=== PATIENT | female | born 1970 | race Caucasian/White ===

== ENCOUNTER 2025-01-08 13:45 | Outpatient (RCR) | payer OTHER, SELFPAY ==
--- NOTE | 2024-09-20 17:52 | OT.OPPOC ---
Physical, Occupational & Speech Therapy At [facility] Nereyda Conway [id number] 1970 Visit Care Team Role Provider Type TREY Rodrigez Attending Provider Non-Staff Primary Care Provider Referring Provider Address: [facility], [address] [place] [address], [id number] Occupational Therapy Plan of Care OT Outpatient Adult Evaluation Start: 09/20/24 12:34 Freq: Status: Active Protocol: Document 09/20/24 14:30 (Rec: 09/20/24 12:53 [id number]) General Information - Adult Visit Information Visit Number 1 of 10 Plan of Care Dates 09/20/24-11/29/24 Insurance no pre-auth;no copay/deductible;max 12 OT visits, Information including 1 OT eval pcy Session Time Visit Start Date 09/20/24 Visit Start Time 14:30 Visit Stop Time 15:15 Setting Treatment Setting Outpatient Care Visit Type Note Type Initial Evaluation Referral Referring Physician TREY Rodrigez, MSN, CLINICAL DATA RESEARCH-BC Reason for Referral DeQuervain's tenosynovitis of wrist Identification Identification Yes Confirmed Identification EMR Confirmed By Medical Information Medical History History of bilateral trigger of thumbs, vestibular migraines, vertigo Social Information Social History I can't do anything with a supervisor shop at this point, 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, Patient Questionnaires Quick Dash- Upper Extremity Quick Dash UE Score 52.3 Quick Dash UE 40 to 59% Impaired (Score 40-59) Impairment Quick Dash- Work and Sports Modules Quick Dash W&S Score W: 75, S: 100 Quick Dash Work and 100% Impaired (Score 100) Sport Impairment Goals Objective Measurements Objective Juan test: (+) bilaterally Measurements Dredge Pumper: R - 10, 10, 10 - Average: 10lb L - 5, 8, 10 - Average: 7.7lb 3 Jaw Juan Pinch: R - 7, 9, 6 - Average: 7.3lb L - 5, 5, 7 - Average: 5.7lb Lateral Pinch: R - 7, 10, 10 - Average: 9lb L - 9, 10, 9 - Average: 9.3 Treatment Treatment Patient educated on conservative management strategies for suspected bilateral DeQuervain?s tenosynovitis. Home exercise program initiated, including gentle AROM for ulnar deviation, thumb opposition, and Juan stretch. Patient instructed on appropriate use of ice and heat modalities for pain modulation. Advised to continue use of bilateral thumb spica splints with emphasis on compliance during aggravating activities. Discussed benefits and rationale for compression wrapping, as patient reported previous benefit. Short Term Goals Short Term Goals Within 5 weeks: 1. Patient will demonstrate independence with ergonomic strategies and self-management tools including appropriate splint use, modalities, and task pacing/ modification to prevent flare-up. 2. Patient will report a reduction in pain during light grasp and pinch activities from 9/10 to =5/10 per self -report. 3. Patient will demonstrate independent performance of HEP with correct technique and tolerance within pain free range. 4. Patient will identify 3 aggravating tasks and demonstrate safe modification or tool adaptation strategies to reduce flare-ups. 5. Patient will tolerate 15?20 minutes of light leisure or work-related hand activity without sharp pain (VAS =/<6/10). Bottle Washer Machine Goals Bottle Washer Machine Goals Within 10 weeks: 1. Patient will report reduction of average pain to =3/ 10 with daily ADL and light IADL including carrying lightweight objects (e.g. plate, laptop). 2. Patient will demonstrate improved supervisor shop strength of = 18 lb (R) and =15 lb (L) without symptom flare-up. 3. Patient will participate in light occupational/ leisure tasks (typing, embroidery) for =30 minutes with minimal discomfort per patient report. 4. Patient will tolerate modified weight-bearing through wrists (e.g. light pressure with palms flat) with <3/10 pain. 5. Patient will demonstrate improved perceived independence with functional performance as demonstrated by a quickDASH score of =/< 25 in all modules. Assessment/Plan Assessment Patient Response Good Rehabilitation Excellent Potential Impairments ADLs,Body Mechanics,Functional Activities,Motor Identified Function,Pain,Weakness,Recreational Activities, Meaningful Activities,Work Capacity Treatment Assessment 54 year old [id number] female referred to occupational therapy by Shelly Jarrett, SPINNING DOFFER, MSN, CLINICAL DATA RESEARCH -BC for bilateral DeQuervain's tenosynovitis. Patient presents with clinical signs consistent with bilateral DeQuervain?s tenosynovitis, including positive Juan?s test, impaired supervisor shop strength, activity- provoked pain at the radial wrist near the first dorsal compartment, and reported aggravation during functional and occupational tasks such as embroidery, typing, and lifting. While symptom provocation is inconsistent with repeated movements, she reports sharp , severe pain at times (9/10) with clear correlation to load through the thumb and radial wrist. She demonstrates marked activity limitations in ADL, IADL, and work tasks with QuickDASH scores and non-functional supervisor shop and pinch strength bilaterally reflecting substantial disability. 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 Despite some modest improvement in function since symptom onset in December 2023, pain remains significant and limiting. Splint compliance and prior response to compression suggest that neuromuscular and mechanical support are essential components of her symptom management. Further evaluation is warranted for differential diagnosis including possible intersection syndrome or early CMC joint instability. Patient will benefit from skilled OT services to address pain modulation, activity modification, ergonomic retraining, progressive HEP instruction, splinting guidance, and gradual reconditioning of supervisor shop and pinch mechanics to restore functional participation . Home Exercise AROM for ulnar deviation, thumb opposition, and Program Juan stretch Reviewed with Goals,Progress Being Made,Home Exercise Program Patient Patient Good Understanding Plan Length of treatment 10 (weeks) Plan of Care Start 09/20/24 Date Plan of Care End 11/29/24 Date Treatment Frequency Once a Week Treatment Duration 45 Minutes Therapeutic Contents Active Range of Motion,Adaptive Equipment Education, Client Education,Functional Activities,Home Exercise Program,Joint Protection,Manual Therapy,Education,Self- Care,Stretching/Flexibility Activities,Therapeutic Activities,Therapeutic Exercises,Modalities Modalities As Needed Types of Modalities Contrast Bath,Ice Massage,Other Additional Types of MHP, paraffin Modalities Patient Instruction Home Exercise Program,Plan of Care,Questions/Concerns Patient Continue with Current Program Recommendations Electronically Signed by: Katharine Salinas OT 09/20/24 3615 If you are in agreement with this Plan of Care, please return a signed and dated copy. I have reviewed this Plan of Care and certify that the skilled therapy services above are required to meet the patient?s needs. Physician Signature Date Printed Name and Credentials Clinical Instructor Signature Printed Name and Credentials
--- NOTE | 2024-09-28 17:33 | OT.OP.TRT ---
Visit Care Team Role Provider Type TREY Rodrigez Attending Provider Non-Staff Primary Care Provider Referring Provider Specialty: Nursing Address: [facility], [address] [place] [address], [id number] Email: Occupational Therapy Treatment Note OT Outpatient Treatment Note - Adult Start: 09/20/24 12:34 Freq: Status: Active Protocol: Document 09/28/24 11:30 (Rec: 09/28/24 09:26 [id number]) OT Outpatient Adult Treatment Note Session Time Visit Start Date 09/28/24 Visit Start Time 11:30 Visit Stop Time 12:15 Visit Information Visit Number 2 of 10 Plan of Care Dates 09/20/24-11/29/24 Insurance no pre-auth;no copay/deductible;max 12 OT visits, Information including 1 OT eval pcy Setting Treatment Setting Outpatient Care Visit Type Note Type Treatment Note - Subjective Identification Type Name Identification Medical Record Reconciled With Observations I have drastically reduced my time on the computer and been wearing my braces almost always - - Treatment 1 Descriptor Patient participated in review and guided practice of prescribed home exercise program with focus on gentle AROM for wrist and thumb mobility. Therapist instructed patient in kinesiotaping techniques for bilateral DeQuervain?s tenosynovitis, including proper placement, tension, and wear schedule. Patient demonstrated good understanding of taping purpose and technique; additional kinesiology tape and instructional video link were provided to support independent carryover between sessions. Patient reported increased awareness of neck and upper trapezius tension following recent massage, with emerging symptoms of referred discomfort into the cervical and shoulder girdle region coinciding with thumb pain episodes. Therapist provided education on postural considerations and instructed patient in gentle self-management strategies to address cervical and scapular tension (e.g., scapular squeezes, levator stretch, diaphragmatic breathing). - Assessment Patient Response to Good Treatment Rehabilitation Excellent Potential Impairments ADLs,Body Mechanics,Functional Activities,Motor Identified Function,Pain,Weakness,Recreational Activities, Meaningful Activities,Work Capacity Progress Towards Good Progress Goals Assessment of Improving Overall Progress Assessment of Patient is progressing with education and early symptom Improvement management strategies for bilateral DeQuervain?s tenosynovitis. She demonstrated good recall and understanding of kinesiotaping techniques and rationale , and appears motivated to engage in home-based interventions. Notably, she reports onset of new cervical and upper trapezius tension that appears linked to wrist/thumb symptoms, suggesting involvement of proximal compensatory patterns and kinetic chain imbalance. Continued skilled OT is warranted to support patient?s symptom management, facilitate improved upper extremity mechanics, and address emerging compensatory tension patterns that may hinder functional recovery. Patient is a good candidate for progressive intervention focusing on joint protection, ergonomic modifications, and neuromuscular re-education. Reviewed with Goals,Progress Being Made,Home Exercise Program Patient/Caregiver Patient/Caregiver Good Understanding - Plan Therapy Continue with Current Program Recommendations Amount of Therapy 2-3 Months Recommended Frequency of Once a Week Treatment Length of Session 45 Minutes Therapeutic Contents Active Range of Motion,Adaptive Equipment Education, Client Education,Functional Activities,Home Exercise Program,Joint Protection,Manual Therapy,Education,Self- Care,Stretching/Flexibility Activities,Therapeutic Activities,Therapeutic Exercises,Modalities Modalities As Needed Types of Modalities Contrast Bath,Ice Massage,Other Additional Types of MHP, paraffin Modalities
--- NOTE | 2024-10-02 12:31 | OT.OP.TRT ---
Visit Care Team Role Provider Type TREY Rodrigez Attending Provider Non-Staff Primary Care Provider Referring Provider Specialty: Nursing Address: [facility], [address] [place] [address], [id number] Email: Occupational Therapy Treatment Note OT Outpatient Treatment Note - Adult Start: 09/20/24 12:34 Freq: Status: Active Protocol: Document 10/02/24 10:45 (Rec: 10/02/24 08:52 [id number]) OT Outpatient Adult Treatment Note Session Time Visit Start Date 10/02/24 Visit Start Time 10:45 Visit Stop Time 11:30 Visit Information Visit Number 3 of 10 Plan of Care Dates 09/20/24-11/29/24 Insurance no pre-auth;no copay/deductible;max 12 OT visits, Information including 1 OT eval pcy Setting Treatment Setting Outpatient Care Visit Type Note Type Treatment Note - Subjective Identification Type Name Identification Medical Record Reconciled With Observations The K tape seemed to really help, more than I realized even, because when I took it off, I certainly noticed more pain - - Treatment 1 Descriptor Patient participated in review and guided practice of prescribed home exercise program with focus on gentle AROM for wrist and thumb mobility, pt is still experiencing some symptoms during ROM alone, resistance /strengthening continuing to be held with only gentle stretching until pain reduced as well as gentle massage to forearm. Pt verbalized understanding. Pt reported significant benefits of k-taping since last treatment, therapist reviewed education with patient in kinesiotaping techniques for bilateral DeQuervain?s tenosynovitis, including proper placement, tension, and wear schedule. Patient demonstrated good understanding of taping purpose and technique, though continues to require verbal and visual cues for correct application of k-tape and return demo of HEP - Assessment Patient Response to Good Treatment Rehabilitation Excellent Potential Impairments ADLs,Body Mechanics,Functional Activities,Motor Identified Function,Pain,Weakness,Recreational Activities, Meaningful Activities,Work Capacity Progress Towards Good Progress Goals Assessment of Improving Overall Progress Assessment of Patient continues to demonstrate engagement in skilled Improvement OT interventions for bilateral DeQuervain?s tenosynovitis. She reports positive response to kinesiotaping with decreased pain since last session. During today?s treatment, she demonstrated good recall of tape purpose and application with ongoing need for verbal and visual cueing for independent carryover. Gentle AROM continues to elicit symptoms, indicating persistent tendon irritation; therefore, therapeutic loading remains deferred. Patient tolerated gentle soft tissue work and passive stretching without significant exacerbation. She verbalized understanding of all education provided and will continue to benefit from skilled OT to support pain management, reinforce correct taping and HEP techniques, and guide graded progression toward functional strengthening. Home Exercise added gentle forearm massage with good return demo Program Reviewed with Goals,Progress Being Made,Home Exercise Program Patient/Caregiver Patient/Caregiver Good Understanding - Plan Therapy Continue with Current Program Recommendations Amount of Therapy 2-3 Months Recommended Frequency of Once a Week Treatment Length of Session 45 Minutes Therapeutic Contents Active Range of Motion,Adaptive Equipment Education, Client Education,Functional Activities,Home Exercise Program,Joint Protection,Manual Therapy,Education,Self- Care,Stretching/Flexibility Activities,Therapeutic Activities,Therapeutic Exercises,Modalities Modalities As Needed Types of Modalities Contrast Bath,Ice Massage,Other Additional Types of MHP, paraffin Modalities
--- NOTE | 2024-10-09 17:40 | OT.OP.TRT ---
Visit Care Team Role Provider Type TREY Rodrigez Attending Provider Non-Staff Primary Care Provider Referring Provider Specialty: Nursing Address: [facility], [address] [place] [address], [id number] Email: Occupational Therapy Treatment Note OT Outpatient Treatment Note - Adult Start: 09/20/24 12:34 Freq: Status: Active Protocol: Document 10/09/24 14:30 (Rec: 10/09/24 17:40 [id number]) OT Outpatient Adult Treatment Note Session Time Visit Start Date 10/09/24 Visit Start Time 14:30 Visit Stop Time 15:15 Visit Information Visit Number 4 of 10 Plan of Care Dates 09/20/24-11/29/24 Insurance no pre-auth;no copay/deductible;max 12 OT visits, Information including 1 OT eval pcy Setting Treatment Setting Outpatient Care Visit Type Note Type Treatment Note - Subjective Identification Type Name Identification Medical Record Reconciled With Observations Wow, I feel a lot better now than I did when I walked in here - Objective Short Term Goals Within 5 weeks: 1. Patient will demonstrate independence with ergonomic strategies and self-management tools including appropriate splint use, modalities, and task pacing/ modification to prevent flare-up. 2. Patient will report a reduction in pain during light grasp and pinch activities from 9/10 to =5/10 per self -report. 3. Patient will demonstrate independent performance of HEP with correct technique and tolerance within pain free range. 4. Patient will identify 3 aggravating tasks and demonstrate safe modification or tool adaptation strategies to reduce flare-ups. 5. Patient will tolerate 15?20 minutes of light leisure or work-related hand activity without sharp pain (VAS =/<6/10). Tower Loader Operator Goals Within 10 weeks: 1. Patient will report reduction of average pain to =3/ 10 with daily ADL and light IADL including carrying lightweight objects (e.g. plate, laptop). 2. Patient will demonstrate improved front office assistant strength of = 18 lb (R) and =15 lb (L) without symptom flare-up. 3. Patient will participate in light occupational/ leisure tasks (typing, embroidery) for =30 minutes with minimal discomfort per patient report. 4. Patient will tolerate modified weight-bearing through wrists (e.g. light pressure with palms flat) with <3/10 pain. 5. Patient will demonstrate improved perceived independence with functional performance as demonstrated by a quickDASH score of =/< 25 in all modules. - Treatment 1 Descriptor Kinesiotape for bilateral DeQuervain?s tenosynovitis was reapplied with therapist guidance; patient reported continued reduction in pain symptoms with tape in place. Therapeutic vibratory stimulation was applied using a low-frequency tuning fork (128 Hz) at targeted anatomical locations, including subclavicular fossa, forearm, and anatomical snuffbox, to facilitate neuromodulation and improve somatosensory feedback. This modality was used as a non-invasive adjunct to address potential neural sensitivity and associated myofascial tension. Patient reported an immediate reduction in pain intensity and increased ease of movement following vibratory input, with previously reported radiating discomfort dissipating during the session. No adverse reactions were noted. Exercises 1 Descriptor Patient participated in review and guided performance of her home exercise program, including active range of motion for wrist and thumb and introduction of radial nerve glides to address possible proximal neural involvement. Patient demonstrated good return demonstration and understanding of prescribed exercises . - Assessment Patient Response to Good Treatment Rehabilitation Excellent Potential Impairments ADLs,Body Mechanics,Functional Activities,Motor Identified Function,Pain,Weakness,Recreational Activities, Meaningful Activities,Work Capacity Progress Towards Good Progress Goals Assessment of Improving Overall Progress Assessment of Patient continues to demonstrate clinically significant Improvement symptoms of bilateral DeQuervain?s tenosynovitis with probable contributing proximal neural tension. Today?s session highlighted positive neuromuscular response to targeted vibratory stimulation, consistent with improved sensory processing and reduced tissue irritability. Patient also responded favorably to kinesiotape reapplication and introduction of radial nerve gliding techniques. She demonstrated good engagement and recall of home program exercises, and reported improved comfort and function by the end of session. Continued skilled OT is indicated to support neuromuscular re-education, guide graded reintroduction of movement, address proximal contributors to distal overuse pathology, and prevent compensatory movement strategies. Patient is responding well to multimodal conservative intervention and remains motivated to participate in her recovery process. Home Exercise introduced radial nerve glides with good return demo Program Reviewed with Goals,Progress Being Made,Home Exercise Program Patient/Caregiver Patient/Caregiver Good Understanding - Plan Therapy Continue with Current Program Recommendations Amount of Therapy 2-3 Months Recommended Frequency of Once a Week Treatment Length of Session 45 Minutes Therapeutic Contents Active Range of Motion,Adaptive Equipment Education, Client Education,Functional Activities,Home Exercise Program,Joint Protection,Manual Therapy,Education,Self- Care,Stretching/Flexibility Activities,Therapeutic Activities,Therapeutic Exercises,Modalities Modalities As Needed Types of Modalities Contrast Bath,Ice Massage,Other Additional Types of MHP, paraffin Modalities
--- NOTE | 2024-10-16 17:56 | OT.OPPN ---
Current Diagnoses Radial styloid tenosynovitis [de Quervain] (10/16/24) OT Progress Note OT Outpatient Treatment Note - Adult Start: 09/20/24 12:34 Freq: Status: Active Protocol: Document 10/16/24 14:30 (Rec: 10/16/24 11:24 [id number]) OT Outpatient Adult Treatment Note Session Time Visit Start Date 10/16/24 Visit Start Time 14:30 Visit Stop Time 15:15 Visit Information Visit Number 5 of 10 Plan of Care Dates 09/20/24-11/29/24 Insurance no pre-auth;no copay/deductible;max 12 OT visits, Information including 1 OT eval pcy Setting Treatment Setting Outpatient Care Visit Type Note Type Progress Note - Subjective Identification Type Name Identification Medical Record Reconciled With Observations I noticed a HUGE dissipation in p[ain this week that I really think was related to the forks you used last week - Objective Short Term Goals Within 5 weeks: 1. Patient will demonstrate independence with ergonomic strategies and self-management tools including appropriate splint use, modalities, and task pacing/ modification to prevent flare-up. [PROGRESSING 10/16/24] 2. Patient will report a reduction in pain during light grasp and pinch activities from 9/10 to =5/10 per self -report. [PROGRESSING 10/16/24] 3. Patient will demonstrate independent performance of HEP with correct technique and tolerance within pain free range.[PROGRESSING 10/16/24] 4. Patient will identify 3 aggravating tasks and demonstrate safe modification or tool adaptation strategies to reduce flare-ups. [PROGRESSING 10/16/24] 5. Patient will tolerate 15?20 minutes of light leisure or work-related hand activity without sharp pain (VAS =/<6/10). [PROGRESSING 10/16/24] Cream Dumper Goals Within 10 weeks: 1. Patient will report reduction of average pain to =3/ 10 with daily ADL and light IADL including carrying lightweight objects (e.g. plate, laptop). [PROGRESSING 10/16/24] 2. 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 [ PROGRESSING 10/16/24] 3. Patient will participate in light occupational/ leisure tasks (typing, embroidery) for =30 minutes with minimal discomfort per patient report. [PROGRESSING 02/28] 4. Patient will tolerate modified weight-bearing through wrists (e.g. light pressure with palms flat) with <3/10 pain. [PROGRESSING 10/16/24] 5. Patient will demonstrate improved perceived independence with functional performance as demonstrated by a quickDASH score of =/< 25 in all modules. [PROGRESSING 10/16/24] - Treatment 1 Descriptor Patient participated in re-evaluation of passive range of motion (PROM) for bilateral wrists, with notable soft end-feel and limited PROM in all planes of the right wrist compared to the left. Increased tone and tissue tension noted in the right thenar webspace. Patient was re-educated on self-administered soft tissue release techniques for the first webspace to reduce myofascial restriction and support thumb function. Therapist provided gentle bilateral forearm massage focused on general tissue relaxation rather than direct trigger point release, in consideration of vibratory input applied during the same session. 128 Hz vibratory stimulation (therapeutic tuning fork) was applied bilaterally to the radial wrist and forearm to support neuromuscular re-education and somatosensory input modulation. Patient tolerated all interventions well and reported an immediate sense of relief and reduced wrist tension during the session. Due to the use of massage lotion, kinesiotape was deferred this session to allow for appropriate skin prep; patient verbalized understanding and plans to reapply tape independently at home. - Assessment Patient Response to Good Treatment Rehabilitation Excellent Potential Impairments ADLs,Body Mechanics,Functional Activities,Motor Identified Function,Pain,Weakness,Recreational Activities, Meaningful Activities,Work Capacity Progress Towards Good Progress Goals Assessment of Improving Overall Progress Assessment of Patient continues to demonstrate symptoms consistent Improvement with bilateral DeQuervain?s tenosynovitis with associated soft tissue tightness and neural sensitivity , more pronounced on the right. She shows functional gains and symptom improvement with multimodal treatment , including education, soft tissue mobilization, and therapeutic vibration. Today's session emphasized tissue tolerance and neurosensory regulation, with interventions tailored to avoid overstimulation. Patient remains motivated, demonstrates good engagement in home program strategies, and is benefiting from skilled OT services to address tissue mobility restrictions, activity modification, and reintroduction of functional use of the hands. Continued OT is recommended to support further progression with symptom management, movement quality, and occupational task performance. Home Exercise introduced radial nerve glides with good return demo Program Reviewed with Goals,Progress Being Made,Home Exercise Program Patient/Caregiver Patient/Caregiver Good Understanding - Plan Therapy Continue with Current Program Recommendations Amount of Therapy 2-3 Months Recommended Frequency of Once a Week Treatment Length of Session 45 Minutes Therapeutic Contents Active Range of Motion,Adaptive Equipment Education, Client Education,Functional Activities,Home Exercise Program,Joint Protection,Manual Therapy,Education,Self- Care,Stretching/Flexibility Activities,Therapeutic Activities,Therapeutic Exercises,Modalities Modalities As Needed Types of Modalities Contrast Bath,Ice Massage,Other Additional Types of MHP, paraffin Modalities If you are in agreement with this Plan of Care, please return a signed and dated copy. I have reviewed this Plan of Care and certify that the skilled therapy services above are required to meet the patient?s needs. Physician Signature Date Printed Name and Credentials Clinical Instructor Signature Printed Name and Credentials
--- NOTE | 2024-10-25 11:45 | OT.OP.TRT ---
Visit Care Team Role Provider Type TREY Rodrigez Attending Provider Non-Staff Primary Care Provider Referring Provider Specialty: Nursing Address: [facility], [address] [place] [address], [id number] Email: Occupational Therapy Treatment Note OT Outpatient Treatment Note - Adult Start: 09/20/24 12:34 Freq: Status: Active Protocol: Document 10/25/24 09:45 (Rec: 10/25/24 09:38 [id number]) OT Outpatient Adult Treatment Note Session Time Visit Start Date 10/25/24 Visit Start Time 09:45 Visit Stop Time 10:30 Visit Information Visit Number 6 of 10 Plan of Care Dates 09/20/24-11/29/24 Insurance no pre-auth;no copay/deductible;max 12 OT visits, Information including 1 OT eval pcy Setting Treatment Setting Outpatient Care Visit Type Note Type Treatment Note - Subjective Identification Type Name Identification Medical Record Reconciled With Observations I do feel a difference and I do think its better, its just slow - Objective Short Term Goals Within 5 weeks: 1. Patient will demonstrate independence with ergonomic strategies and self-management tools including appropriate splint use, modalities, and task pacing/ modification to prevent flare-up. [PROGRESSING 10/16/24] 2. Patient will report a reduction in pain during light grasp and pinch activities from 9/10 to =5/10 per self -report. [PROGRESSING 10/16/24] 3. Patient will demonstrate independent performance of HEP with correct technique and tolerance within pain free range.[PROGRESSING 10/16/24] 4. Patient will identify 3 aggravating tasks and demonstrate safe modification or tool adaptation strategies to reduce flare-ups. [PROGRESSING 10/16/24] 5. Patient will tolerate 15?20 minutes of light leisure or work-related hand activity without sharp pain (VAS =/<6/10). [PROGRESSING 10/16/24] Senior Living Goals Within 10 weeks: 1. Patient will report reduction of average pain to =3/ 10 with daily ADL and light IADL including carrying lightweight objects (e.g. plate, laptop). [PROGRESSING 10/16/24] 2. 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 [ PROGRESSING 10/16/24] 3. Patient will participate in light occupational/ leisure tasks (typing, embroidery) for =30 minutes with minimal discomfort per patient report. [PROGRESSING 02/28] 4. Patient will tolerate modified weight-bearing through wrists (e.g. light pressure with palms flat) with <3/10 pain. [PROGRESSING 10/16/24] 5. Patient will demonstrate improved perceived independence with functional performance as demonstrated by a quickDASH score of =/< 25 in all modules. [PROGRESSING 10/16/24] - Treatment 1 Descriptor As part of neuromuscular re-education and sensory modulation, a 128 Hz tuning fork was applied bilaterally to the radial wrist and dorsal forearm. This intervention was utilized to provide localized vibratory input, which is supported in the literature as a method of enhancing proprioceptive feedback, reducing protective muscle guarding, and modulating central sensory processing in the context of chronic soft tissue pain. Patient demonstrated positive response, reporting a subjective decrease in tissue ? tightness? and overall muscle tension post-intervention . Mild improvement in tissue tone and moderate reduction in tenderness with palpation was observed across previously identified areas of restriction. Active range of motion remains limited but showed increased ease and quality of movement following treatment. Although daily tasks remain painful, patient reports continued functional improvement and effective symptom management between sessions. Manual Therapy Manual Therapy Patient participated in a comprehensive session addressing ongoing symptoms related to bilateral DeQuervain?s tenosynovitis. Treatment began with paraffin application to both hands and wrists for thermal softening, followed by manual therapy and targeted trigger point release to the forearm musculature, thenar eminence, and first webspace, with particular focus on the right upper extremity. Areas of increased tone and tenderness were identified over the dorsal forearm and radial wrist region. - Assessment Patient Response to Good Treatment Rehabilitation Excellent Potential Impairments ADLs,Body Mechanics,Functional Activities,Motor Identified Function,Pain,Weakness,Recreational Activities, Meaningful Activities,Work Capacity Progress Towards Good Progress Goals Assessment of Improving Overall Progress Assessment of Patient continues to demonstrate measurable progress in Improvement soft tissue mobility, pain modulation, and responsiveness to multimodal conservative treatment. Today?s session incorporated thermal modalities, manual therapy, and vibratory input, resulting in subjective and observable improvements in muscle tone and myofascial restriction, particularly in the forearm and radial wrist region. Although overall function remains limited due to ongoing pain with daily tasks, the patient reports positive momentum in her recovery process, with gradual symptom reduction and improved tolerance to therapeutic interventions. Continued skilled OT is warranted to address myofascial tension, optimize neuromuscular function, and support progression toward functional use of the hands with decreased symptom provocation. Home Exercise radial nerve glides Program Reviewed with Goals,Progress Being Made,Home Exercise Program Patient/Caregiver Patient/Caregiver Good Understanding - Plan Therapy Continue with Current Program Recommendations Amount of Therapy 2-3 Months Recommended Frequency of Once a Week Treatment Length of Session 45 Minutes Therapeutic Contents Active Range of Motion,Adaptive Equipment Education, Client Education,Functional Activities,Home Exercise Program,Joint Protection,Manual Therapy,Education,Self- Care,Stretching/Flexibility Activities,Therapeutic Activities,Therapeutic Exercises,Modalities Modalities As Needed Types of Modalities Contrast Bath,Ice Massage,Other Additional Types of MHP, paraffin Modalities
--- NOTE | 2024-11-02 12:46 | OT.OP.TRT ---
Visit Care Team Role Provider Type TREY Rodrigez Attending Provider Non-Staff Primary Care Provider Referring Provider Specialty: Nursing Address: [facility], [address] [place] [address], [id number] Email: Occupational Therapy Treatment Note OT Outpatient Treatment Note - Adult Start: 09/20/24 12:34 Freq: Status: Active Protocol: Document 11/02/24 10:45 (Rec: 11/01/24 18:16 [id number]) OT Outpatient Adult Treatment Note Session Time Visit Start Date 11/02/24 Visit Start Time 10:45 Visit Stop Time 11:30 Visit Information Visit Number 7 of 10 Plan of Care Dates 09/20/24-11/29/24 Insurance no pre-auth;no copay/deductible;max 12 OT visits, Information including 1 OT eval pcy Setting Treatment Setting Outpatient Care Visit Type Note Type Treatment Note - Subjective Identification Type Name Identification Medical Record Reconciled With Observations I have noticed a significant reduction in pain last week, so much so I have been forgetting to use my wrist braces! Patient/Caregiver Excellent Compliance with Home Exercise Program - Objective Short Term Goals Within 5 weeks: 1. Patient will demonstrate independence with ergonomic strategies and self-management tools including appropriate splint use, modalities, and task pacing/ modification to prevent flare-up. [PROGRESSING 10/16/24] 2. Patient will report a reduction in pain during light grasp and pinch activities from 9/10 to =5/10 per self -report. [PROGRESSING 10/16/24] 3. Patient will demonstrate independent performance of HEP with correct technique and tolerance within pain free range.[PROGRESSING 10/16/24] 4. Patient will identify 3 aggravating tasks and demonstrate safe modification or tool adaptation strategies to reduce flare-ups. [PROGRESSING 10/16/24] 5. Patient will tolerate 15?20 minutes of light leisure or work-related hand activity without sharp pain (VAS =/<6/10). [PROGRESSING 10/16/24] Skilled Nursing Goals Within 10 weeks: 1. Patient will report reduction of average pain to =3/ 10 with daily ADL and light IADL including carrying lightweight objects (e.g. plate, laptop). [PROGRESSING 10/16/24] 2. 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 [ PROGRESSING 10/16/24] 3. Patient will participate in light occupational/ leisure tasks (typing, embroidery) for =30 minutes with minimal discomfort per patient report. [PROGRESSING 02/28] 4. Patient will tolerate modified weight-bearing through wrists (e.g. light pressure with palms flat) with <3/10 pain. [PROGRESSING 10/16/24] 5. Patient will demonstrate improved perceived independence with functional performance as demonstrated by a quickDASH score of =/< 25 in all modules. [PROGRESSING 10/16/24] - Treatment 1 Descriptor Therapist provided targeted education on the impact of menopausal hormonal changes on soft tissue health, including implications for tendon elasticity, healing response, and pain sensitivity. Discussion linked hormonal influences to the patient?s current symptoms and recovery trajectory, reinforcing the importance of pacing, joint protection, and consistent use of support strategies. Home exercise program and bracing protocol were reviewed; patient demonstrated high compliance, though reported intermittent brace use recently due to decreased pain. She acknowledged a mild return of symptoms with reduced brace wear, highlighting the benefit of continued structured support. Patient was re -educated on brace use during aggravating tasks. In addition, a vibratory stimulation sequence using a 128 Hz tuning fork was applied to the radial wrist and forearm bilaterally to support proprioceptive input, neuromuscular re-education, and sensory modulation. Patient tolerated all interventions well and reported further reduction in tissue tightness following the sequence. Manual Therapy Manual Therapy Patient participated in skilled manual therapy to address persistent soft tissue restrictions contributing to functional limitations and pain associated with bilateral DeQuervain?s tenosynovitis. Myofascial mobilization and trigger point release were performed to the first dorsal compartment, thenar eminence, radial forearm, and ECU/ECRB regions. Treatment aimed to reduce localized hypertonicity, improve tissue extensibility, and decrease pain with motion. Patient demonstrated good tissue response, with noted reduction in tenderness and muscle tension following intervention. - Assessment Patient Response to Good Treatment Rehabilitation Excellent Potential Impairments ADLs,Body Mechanics,Functional Activities,Motor Identified Function,Pain,Weakness,Recreational Activities, Meaningful Activities,Work Capacity Progress Towards Good Progress Goals Assessment of Improving Overall Progress Assessment of Patient continues to demonstrate steady progress in Improvement symptom management and functional use of the hands, with significantly reduced pain since initiating treatment. Today?s session highlighted positive response to manual therapy and vibratory input, as well as appropriate engagement with home strategies. Her understanding of the relationship between hormonal changes and tendon health has improved her insight into activity pacing and symptom patterns. Minor symptom return with inconsistent brace use underscores the continued importance of supportive positioning and structured self-management. Patient remains an excellent candidate for skilled OT to address residual myofascial restrictions, support tendon loading in a controlled manner, and facilitate safe return to full occupational and ADL participation. Home Exercise radial nerve glides Program Reviewed with Goals,Progress Being Made,Home Exercise Program Patient/Caregiver Patient/Caregiver Good Understanding - Plan Therapy Continue with Current Program Recommendations Amount of Therapy 2-3 Months Recommended Frequency of Once a Week Treatment Length of Session 45 Minutes Therapeutic Contents Active Range of Motion,Adaptive Equipment Education, Client Education,Functional Activities,Home Exercise Program,Joint Protection,Manual Therapy,Education,Self- Care,Stretching/Flexibility Activities,Therapeutic Activities,Therapeutic Exercises,Modalities Modalities As Needed Types of Modalities Contrast Bath,Ice Massage,Other Additional Types of MHP, paraffin Modalities
--- NOTE | 2024-11-06 17:46 | OT.OP.TRT ---
Visit Care Team Role Provider Type TREY Rodrigez Attending Provider Non-Staff Primary Care Provider Referring Provider Specialty: Nursing Address: [facility], [address] [place] [address], [phone] Email: Occupational Therapy Treatment Note OT Outpatient Treatment Note - Adult Start: 09/20/24 12:34 Freq: Status: Active Protocol: Document 11/06/24 15:15 (Rec: 11/06/24 10:40 [id number]) OT Outpatient Adult Treatment Note Session Time Visit Start Date 11/06/24 Visit Start Time 15:15 Visit Stop Time 16:00 Visit Information Visit Number 8 of 10 Plan of Care Dates 09/20/24-11/29/24 Insurance no pre-auth;no copay/deductible;max 12 OT visits, Information including 1 OT eval pcy Setting Treatment Setting Outpatient Care Visit Type Note Type Treatment Note - Subjective Identification Type Name Identification Medical Record Reconciled With Observations I see my software database architect Tuesday and am going to ask about hormone replacement therapies Patient/Caregiver Excellent Compliance with Home Exercise Program - Objective Short Term Goals Within 5 weeks: 1. Patient will demonstrate independence with ergonomic strategies and self-management tools including appropriate splint use, modalities, and task pacing/ modification to prevent flare-up. [PROGRESSING 10/16/24] 2. Patient will report a reduction in pain during light grasp and pinch activities from 9/10 to =5/10 per self -report. [PROGRESSING 10/16/24] 3. Patient will demonstrate independent performance of HEP with correct technique and tolerance within pain free range.[PROGRESSING 10/16/24] 4. Patient will identify 3 aggravating tasks and demonstrate safe modification or tool adaptation strategies to reduce flare-ups. [PROGRESSING 10/16/24] 5. Patient will tolerate 15?20 minutes of light leisure or work-related hand activity without sharp pain (VAS =/<6/10). [PROGRESSING 10/16/24] Software Test Analyst Goals Within 10 weeks: 1. Patient will report reduction of average pain to =3/ 10 with daily ADL and light IADL including carrying lightweight objects (e.g. plate, laptop). [PROGRESSING 10/16/24] 2. 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 [ PROGRESSING 10/16/24] 3. Patient will participate in light occupational/ leisure tasks (typing, embroidery) for =30 minutes with minimal discomfort per patient report. [PROGRESSING 02/28] 4. Patient will tolerate modified weight-bearing through wrists (e.g. light pressure with palms flat) with <3/10 pain. [PROGRESSING 10/16/24] 5. Patient will demonstrate improved perceived independence with functional performance as demonstrated by a quickDASH score of =/< 25 in all modules. 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 Emphasis was placed on ergonomic positioning, avoiding symptom provocation during repetitive tasks, and understanding how hormonal changes may impact soft tissue resilience and healing. Patient demonstrated good insight and engagement with pacing strategies and reported progress with use of adjunct tools, including a percussion device for forearm muscle relief. Education was also provided on safe activity dosing, reinforcing the concept of just enough movement to maintain mobility without tissue overload. Tolerance Good Exercises 1 Descriptor Patient participated in gentle, pain-free active and assisted range of motion exercises targeting the wrist and thumb, including ulnar and radial deviation, wrist circles, thumb opposition, and tabletop towel slides. All movements were performed within a limited range to avoid tissue irritation. Light joint distraction and passive mobilization techniques were incorporated to support improved tissue glide and proprioceptive input. Patient demonstrated good tolerance and appropriate movement quality, with no increase in symptoms during or after exercise. 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 She tolerates manual therapy, neuromuscular re-education with vibratory input, and gentle AROM progression well, with no adverse reactions noted. Today?s treatment included skilled manual techniques and vibratory input using 128 Hz and 136.1 Hz tuning forks to address persistent myofascial restriction and nervous system upregulation. Patient reported positive response to tuning forks and demonstrated improved tissue pliability and tolerance to therapeutic handling . She is actively participating in her recovery, utilizing self-management tools (e.g., percussion massage, splints, pacing strategies), and will be consulting with her software database architect regarding possible hormone replacement therapy. Continued skilled OT is warranted to reinforce movement patterns, support soft tissue recovery, and advance functional use of the upper extremities in a hormonally informed, tissue- protective framework. Home Exercise radial nerve glides Program Reviewed with Goals,Progress Being Made,Home Exercise Program Patient/Caregiver Patient/Caregiver Good Understanding - Plan Therapy Continue with Current Program Recommendations Amount of Therapy 2-3 Months Recommended Frequency of Once a Week Treatment Length of Session 45 Minutes Therapeutic Contents Active Range of Motion,Adaptive Equipment Education, Client Education,Functional Activities,Home Exercise Program,Joint Protection,Manual Therapy,Education,Self- Care,Stretching/Flexibility Activities,Therapeutic Activities,Therapeutic Exercises,Modalities Modalities As Needed Types of Modalities Contrast Bath,Ice Massage,Other Additional Types of MHP, paraffin Modalities
--- NOTE | 2024-12-07 15:58 | OT.OPPN ---
Current Diagnoses Radial styloid tenosynovitis [de Quervain] (12/07/24) OT Progress Note OT Outpatient Treatment Note - Adult Start: 09/20/24 12:34 Freq: Status: Active Protocol: Document 12/07/24 11:30 (Rec: 11/13/24 12:01 [id number]) OT Outpatient Adult Treatment Note Session Time Visit Start Date 12/07/24 Visit Start Time 11:30 Visit Stop Time 12:15 Visit Information Visit Number 9 of 12 Plan of Care Dates 09/20/24-12/28/24 Insurance no pre-auth;no copay/deductible;max 12 OT visits, Information including 1 OT eval pcy Setting Treatment Setting Outpatient Care Visit Type Note Type Progress Note General Information General Information requesting date extension and last 2 visits for total of 12 visits through 12/28/24 - Subjective Identification Type Name Identification Medical Record Reconciled With Observations Overall its still better but, I did get out of my routine while you were gone and it did get flared up again some Patient/Caregiver Excellent Compliance with Home Exercise Program - Objective Short Term Goals Within 5 weeks: 1. Patient will demonstrate independence with ergonomic strategies and self-management tools including appropriate splint use, modalities, and task pacing/ modification to prevent flare-up. [PROGRESSING 12/07/24] 2. Patient will report a reduction in pain during light grasp and pinch activities from 9/10 to =5/10 per self -report. [PROGRESSING 12/07/24] 3. Patient will demonstrate independent performance of HEP with correct technique and tolerance within pain free range.[MET 12/07/24] 4. Patient will identify 3 aggravating tasks and demonstrate safe modification or tool adaptation strategies to reduce flare-ups. [MET 12/07/24] 5. Patient will tolerate 15?20 minutes of light leisure or work-related hand activity without sharp pain (VAS =/<6/10). [PROGRESSING 12/07/24] Penitentiary Goals Within 10 weeks: 1. Patient will report reduction of average pain to =3/ 10 with daily ADL and light IADL including carrying lightweight objects (e.g. plate, laptop). [PROGRESSING 12/07/24] 2. 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 [ PROGRESSING 12/07/24] 3. Patient will participate in light occupational/ leisure tasks (typing, embroidery) for =30 minutes with minimal discomfort per patient report. [PROGRESSING ] 4. Patient will tolerate modified weight-bearing through wrists (e.g. light pressure with palms flat) with <3/10 pain. [PROGRESSING 12/07/24] 5. Patient will demonstrate improved perceived independence with functional performance as demonstrated by a quickDASH score of =/< 25 in all modules. [PROGRESSING 12/07/24] - Treatment 1 Descriptor Patient participated in review and guided modification of home exercise program (HEP) and bracing schedule in response to a recent increase in symptoms. She reported decreased compliance due to a busy schedule and acknowledged a corresponding flare in pain and functional limitation. Therapist provided education on the relationship between tendon irritability, hormonal sensitivity, and activity dosing, emphasizing the importance of gradual reloading and consistent external support during daily tasks. Patient was instructed to resume bracing as often as possible during symptomatic or high-load activities and to scale back the intensity and frequency of her HEP, progressing only as tolerated. Strategies for pacing and symptom monitoring were discussed, and patient demonstrated understanding of how to modify her program based on symptom response. In addition, a targeted vibratory input sequence using 128 Hz and 136.1 Hz tuning forks was administered to the radial wrist, dorsal forearm, radial tunnel, and upper trapezius region, followed by grounding application to the sternum. Patient reported subjective improvement in tissue tightness and tolerance following treatment. - Assessment Patient Response to Good Treatment Rehabilitation Excellent Potential Impairments ADLs,Body Mechanics,Functional Activities,Motor Identified Function,Pain,Weakness,Recreational Activities, Meaningful Activities,Work Capacity Progress Towards Good Progress Goals Assessment of Improving Overall Progress Assessment of Despite a temporary symptom flare linked to reduced Improvement compliance with home program and bracing, the patient continues to demonstrate overall improvement since initiating skilled OT. She shows good insight into the connection between symptom management and adherence to treatment recommendations. Patient responded well to today?s manual and vibratory interventions and continues to benefit from a graded, hormonally informed approach to tendon loading, soft tissue mobilization, and neuromuscular regulation. Ongoing skilled OT is indicated to support reestablishment of tissue tolerance, reinforce patient- directed pacing strategies, and guide a safe return to functional hand use with reduced reactivity. Home Exercise radial nerve glides Program Reviewed with Goals,Progress Being Made,Home Exercise Program Patient/Caregiver Patient/Caregiver Good Understanding - Plan Therapy Continue with Current Program Recommendations Amount of Therapy 2-3 Months Recommended Frequency of Once a Week Treatment Length of Session 45 Minutes Therapeutic Contents Active Range of Motion,Adaptive Equipment Education, Client Education,Functional Activities,Home Exercise Program,Joint Protection,Manual Therapy,Education,Self- Care,Stretching/Flexibility Activities,Therapeutic Activities,Therapeutic Exercises,Modalities Modalities As Needed Types of Modalities Contrast Bath,Ice Massage,Other Additional Types of MHP, paraffin Modalities If you are in agreement with this Plan of Care, please return a signed and dated copy. I have reviewed this Plan of Care and certify that the skilled therapy services above are required to meet the patient?s needs. Physician Signature Date Printed Name and Credentials Clinical Instructor Signature Printed Name and Credentials
--- NOTE | 2024-12-26 10:35 | OT.OPPOC ---
Physical, Occupational & Speech Therapy At [facility] Nereyda Conway [id number] 1970 Visit Care Team Role Provider Type TREY Rodrigez Attending Provider Non-Staff Primary Care Provider Referring Provider Address: [facility], [address] [place] [address], [id number] UPDATED Occupational Therapy Plan of Care OT Outpatient Adult Evaluation Start: 09/20/24 12:34 Freq: Status: Active Protocol: Document 09/20/24 14:30 (Rec: 09/20/24 12:53 [id number]) General Information - Adult Visit Information Visit Number 1 of 12 Plan of Care Dates 09/20/24-11/29/24 Insurance no pre-auth;no copay/deductible;max 12 OT visits, Information including 1 OT eval pcy Session Time Visit Start Date 09/20/24 Visit Start Time 14:30 Visit Stop Time 15:15 Setting Treatment Setting Outpatient Care Visit Type Note Type Initial Evaluation Referral Referring Physician TREY Rodrigez, MSN, SUPERVISOR NET MAKING-BC Reason for Referral DeQuervain's tenosynovitis of wrist Identification Identification Yes Confirmed Identification EMR Confirmed By Medical Information Medical History History of bilateral trigger of thumbs, vestibular migraines, vertigo Social Information Social History 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, 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, Patient Questionnaires Quick Dash- Upper Extremity Quick Dash UE Score 52.3 Quick Dash UE 40 to 59% Impaired (Score 40-59) Impairment Quick Dash- Work and Sports Modules Quick Dash W&S Score W: 75, S: 100 Quick Dash Work and 100% Impaired (Score 100) Sport Impairment Goals Objective Measurements Objective Juan test: (+) bilaterally Measurements Automatic Teller Machine Servicer: R - 10, 10, 10 - Average: 10lb L - 5, 8, 10 - Average: 7.7lb 3 Jaw Juan Pinch: R - 7, 9, 6 - Average: 7.3lb L - 5, 5, 7 - Average: 5.7lb Lateral Pinch: R - 7, 10, 10 - Average: 9lb L - 9, 10, 9 - Average: 9.3 Treatment Treatment Patient educated on conservative management strategies for suspected bilateral DeQuervain?s tenosynovitis. Home exercise program initiated, including gentle AROM for ulnar deviation, thumb opposition, and Juan stretch. Patient instructed on appropriate use of ice and heat modalities for pain modulation. Advised to continue use of bilateral thumb spica splints with emphasis on compliance during aggravating activities. Discussed benefits and rationale for compression wrapping, as patient reported previous benefit. Short Term Goals Short Term Goals Within 5 weeks: 1. Patient will demonstrate independence with ergonomic strategies and self-management tools including appropriate splint use, modalities, and task pacing/ modification to prevent flare-up. 2. Patient will report a reduction in pain during light grasp and pinch activities from 9/10 to =5/10 per self -report. 3. Patient will demonstrate independent performance of HEP with correct technique and tolerance within pain free range. 4. Patient will identify 3 aggravating tasks and demonstrate safe modification or tool adaptation strategies to reduce flare-ups. 5. Patient will tolerate 15?20 minutes of light leisure or work-related hand activity without sharp pain (VAS =/<6/10). Fdc Goals Alteration Workroom Supervisor Goals Within 10 weeks: 1. Patient will report reduction of average pain to =3/ 10 with daily ADL and light IADL including carrying lightweight objects (e.g. plate, laptop). 2. 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 3. Patient will participate in light occupational/ leisure tasks (typing, embroidery) for =30 minutes with minimal discomfort per patient report. 4. Patient will tolerate modified weight-bearing through wrists (e.g. light pressure with palms flat) with <3/10 pain. 5. Patient will demonstrate improved perceived independence with functional performance as demonstrated by a quickDASH score of =/< 25 in all modules. Assessment/Plan Assessment Patient Response Good Rehabilitation Excellent Potential Impairments ADLs,Body Mechanics,Functional Activities,Motor Identified Function,Pain,Weakness,Recreational Activities, Meaningful Activities,Work Capacity Treatment Assessment 54 year old [id number] female referred to occupational therapy by Shelly Jarrett, ACTIONSCRIPT DEVELOPER, MSN, SUPERVISOR NET MAKING -BC for bilateral DeQuervain's tenosynovitis. 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 While symptom provocation is inconsistent with repeated movements, she reports sharp , severe pain at times (9/10) with clear correlation to load through the thumb and radial wrist. 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 Despite some modest improvement in function since symptom onset in December 2023, pain remains significant and limiting. Splint compliance and prior response to compression suggest that neuromuscular and mechanical support are essential components of her symptom management. Further evaluation is warranted for differential diagnosis including possible intersection syndrome or early CMC joint instability. Patient will benefit from skilled OT services to address pain modulation, activity modification, ergonomic retraining, progressive HEP instruction, splinting guidance, and gradual reconditioning of middle school director and pinch mechanics to restore functional participation . Home Exercise AROM for ulnar deviation, thumb opposition, and Program Juan stretch Reviewed with Goals,Progress Being Made,Home Exercise Program Patient Patient Good Understanding Plan Length of treatment 10 (weeks) Plan of Care Start 09/20/24 Date Plan of Care End 01/17/25 Date Treatment Frequency Once a Week Treatment Duration 45 Minutes Therapeutic Contents Active Range of Motion,Adaptive Equipment Education, Client Education,Functional Activities,Home Exercise Program,Joint Protection,Manual Therapy,Education,Self- Care,Stretching/Flexibility Activities,Therapeutic Activities,Therapeutic Exercises,Modalities Modalities As Needed Types of Modalities Contrast Bath,Ice Massage,Other Additional Types of MHP, paraffin Modalities Patient Instruction Home Exercise Program,Plan of Care,Questions/Concerns Patient Continue with Current Program Recommendations Functional Wrist/Hand Scan Hand Side Sensory Assessment Sensory Profile2 OT Outpatient Treatment Note - Adult Start: 09/20/24 12:34 Freq: Status: Active Protocol: Document 12/25/24 15:15 (Rec: 12/21/24 14:58 [id number]) OT Outpatient Adult Treatment Note Session Time Visit Start Date 12/25/24 Visit Start Time 15:15 Visit Stop Time 16:00 Visit Information Visit Number 10 of 12 Plan of Care Dates 09/20/24-01/17/25 Insurance no pre-auth;no copay/deductible;max 12 OT visits, Information including 1 OT eval pcy Setting Treatment Setting Outpatient Care Visit Type Note Type Treatment Note General Information General Information requesting POC date extension to accommodate missed visits through 01/17/25, 2 visits remaining - Subjective Identification Type Name Identification Medical Record Reconciled With Observations Its not been worse but it feels a bit plateaued Patient/Caregiver Excellent Compliance with Home Exercise Program - Objective Short Term Goals Within 5 weeks: 1. Patient will demonstrate independence with ergonomic strategies and self-management tools including appropriate splint use, modalities, and task pacing/ modification to prevent flare-up. [PROGRESSING 12/07/24] 2. Patient will report a reduction in pain during light grasp and pinch activities from 9/10 to =5/10 per self -report. [PROGRESSING 12/07/24] 3. Patient will demonstrate independent performance of HEP with correct technique and tolerance within pain free range.[MET 12/07/24] 4. Patient will identify 3 aggravating tasks and demonstrate safe modification or tool adaptation strategies to reduce flare-ups. [MET 12/07/24] 5. Patient will tolerate 15?20 minutes of light leisure or work-related hand activity without sharp pain (VAS =/<6/10). [PROGRESSING 12/07/24] Fdc Goals Within 10 weeks: 1. Patient will report reduction of average pain to =3/ 10 with daily ADL and light IADL including carrying lightweight objects (e.g. plate, laptop). [PROGRESSING 12/07/24] 2. 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 [ PROGRESSING 12/07/24] 3. Patient will participate in light occupational/ leisure tasks (typing, embroidery) for =30 minutes with minimal discomfort per patient report. [PROGRESSING ] 4. Patient will tolerate modified weight-bearing through wrists (e.g. light pressure with palms flat) with <3/10 pain. [PROGRESSING 12/07/24] 5. Patient will demonstrate improved perceived independence with functional performance as demonstrated by a quickDASH score of =/< 25 in all modules. [PROGRESSING 12/07/24] - Manual Therapy Manual Therapy Patient received targeted soft tissue mobilization to bilateral forearms, with notable muscle density and knottiness noted throughout the brachioradialis and extensor carpi radialis brevis/longus regions. Tissue texture presented as firm and rolling upon palpation, suggesting chronic myofascial tension and possible fascial binding. Contract-relax techniques were performed to the noted muscle groups with good neuromuscular response and visible softening of tone post-intervention. A full vibratory stimulation sequence tuning forks was applied to the radial and ulnar wrist regions, mid- forearm flexor and extensor compartments, radial tunnel , and scapular region, concluding with grounding at the sternum. Patient reported subjective improvement in tissue tension following the vibratory sequence. Patient also participated in review of bracing routine and home exercise program throughout session, including discussion of pacing and tissue tolerance. Although she reports inconsistent brace use and HEP compliance due to life demands, she has noted no worsening of symptoms, though she does feel that progress has plateaued and seems unrelated to use/disuse or compliance with HEP/brace. Patient continues to express frustration with persistent irritation but remains engaged in her care and demonstrates good understanding of therapeutic recommendations. - Assessment Patient Response to Good Treatment Rehabilitation Excellent Potential Impairments ADLs,Body Mechanics,Functional Activities,Motor Identified Function,Pain,Weakness,Recreational Activities, Meaningful Activities,Work Capacity Progress Towards Good Progress Goals Assessment of Improving Overall Progress Assessment of Patient presents with persistent symptoms consistent Improvement with chronic tendinopathy and myofascial restriction, particularly in the radial wrist and dorsal forearm. Despite intermittent compliance and missed visits, symptoms have remained stable, suggesting an underlying pattern of sensory irritability and soft tissue dysfunction rather than acute overload. She demonstrates positive response to soft tissue mobilization, contract-relax techniques, and vibratory input, and continues to benefit from skilled intervention targeting neuromuscular tone, proprioceptive input, and functional retraining. Patient remains an appropriate candidate for skilled OT , with current treatment goals focused on resolving fascial restriction, promoting tendon resilience, and identifying adaptive strategies for long-term symptom management. Ongoing treatment should include tissue- specific manual techniques, continued vibratory input, and gentle loading progression as tolerated. Home Exercise radial nerve glides Program Reviewed with Goals,Progress Being Made,Home Exercise Program Patient/Caregiver Patient/Caregiver Good Understanding - Plan Therapy Continue with Current Program Recommendations Amount of Therapy 3-4 Months Recommended Frequency of Once a Week Treatment Length of Session 45 Minutes Treatment Emphasis scapular mobs, upper trap/levator scapulae release Next Session Therapeutic Contents Active Range of Motion,Adaptive Equipment Education, Client Education,Functional Activities,Home Exercise Program,Joint Protection,Manual Therapy,Education,Self- Care,Stretching/Flexibility Activities,Therapeutic Activities,Therapeutic Exercises,Modalities Modalities As Needed Types of Modalities Contrast Bath,Ice Massage,Other Additional Types of MHP, paraffin Modalities Electronically Signed by: Katharine Salinas OT 12/26/24 1760 If you are in agreement with this Plan of Care, please return a signed and dated copy. I have reviewed this Plan of Care and certify that the skilled therapy services above are required to meet the patient?s needs. Physician Signature Date Printed Name and Credentials Clinical Instructor Signature Printed Name and Credentials
--- NOTE | 2025-01-01 15:55 | OT.OP.TRT ---
Visit Care Team Role Provider Type TREY Rodrigez Attending Provider Non-Staff Primary Care Provider Referring Provider Specialty: Nursing Address: [facility], [address] [place] [address], [id number] Email: Occupational Therapy Treatment Note OT Outpatient Treatment Note - Adult Start: 09/20/24 12:34 Freq: Status: Active Protocol: Document 01/01/25 15:45 (Rec: 12/28/24 15:16 [id number]) OT Outpatient Adult Treatment Note Session Time Visit Start Date 01/01/25 Visit Start Time 13:45 Visit Stop Time 14:45 Visit Information Visit Number 11 of 12 Plan of Care Dates 09/20/24-01/17/25 Insurance no pre-auth;no copay/deductible;max 12 OT visits, Information including 1 OT eval pcy Setting Treatment Setting Outpatient Care Visit Type Note Type Treatment Note - Subjective Identification Type Name Identification Medical Record Reconciled With Observations It always feels better after I come in Patient/Caregiver Excellent Compliance with Home Exercise Program - Objective Short Term Goals Within 5 weeks: 1. Patient will demonstrate independence with ergonomic strategies and self-management tools including appropriate splint use, modalities, and task pacing/ modification to prevent flare-up. [PROGRESSING 12/07/24] 2. Patient will report a reduction in pain during light grasp and pinch activities from 9/10 to =5/10 per self -report. [PROGRESSING 12/07/24] 3. Patient will demonstrate independent performance of HEP with correct technique and tolerance within pain free range.[MET 12/07/24] 4. Patient will identify 3 aggravating tasks and demonstrate safe modification or tool adaptation strategies to reduce flare-ups. [MET 12/07/24] 5. Patient will tolerate 15?20 minutes of light leisure or work-related hand activity without sharp pain (VAS =/<6/10). [PROGRESSING 12/07/24] Custodial Goals Within 10 weeks: 1. Patient will report reduction of average pain to =3/ 10 with daily ADL and light IADL including carrying lightweight objects (e.g. plate, laptop). [PROGRESSING 12/07/24] 2. 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 [ PROGRESSING 12/07/24] 3. Patient will participate in light occupational/ leisure tasks (typing, embroidery) for =30 minutes with minimal discomfort per patient report. [PROGRESSING ] 4. Patient will tolerate modified weight-bearing through wrists (e.g. light pressure with palms flat) with <3/10 pain. [PROGRESSING 12/07/24] 5. Patient will demonstrate improved perceived independence with functional performance as demonstrated by a quickDASH score of =/< 25 in all modules. [PROGRESSING 12/07/24] - Exercises 1 Descriptor 2x10 reps of AROM for: - ulnar and radial deviation -wrist circles -thumb opposition -tabletop towel slides. Light joint distraction and passive mobilization techniques were incorporated to support improved tissue glide and proprioceptive input. Patient demonstrated good tolerance and appropriate movement quality, with no increase in symptoms during or after exercise. Manual Therapy Manual Therapy Patient participated in bilateral soft tissue mobilization to the forearms with emphasis on reducing myofascial tension and improving tissue pliability. Manual techniques focused on the superficial flexor compartment, including flexor carpi radialis, palmaris longus, and flexor carpi ulnaris, with notable improvement in tissue tone on the left side. The right forearm remained more reactive, with persistent density and resistance to release despite intervention, though some reduction in overall tension was achieved. A brief vibratory input sequence using the 128 Hz tuning fork was applied prior to manual work to facilitate neuromuscular relaxation and enhance tissue receptivity. Light joint distraction and passive mobilization techniques were also incorporated to support fascial glide and proprioceptive feedback. Patient tolerated all manual interventions well, with no symptom exacerbation. - Assessment Patient Response to Good Treatment Rehabilitation Excellent Potential Impairments ADLs,Body Mechanics,Functional Activities,Motor Identified Function,Pain,Weakness,Recreational Activities, Meaningful Activities,Work Capacity Progress Towards Good Progress Goals Assessment of Improving Overall Progress Assessment of Patient continues to demonstrate slow but measurable Improvement progress in managing symptoms related to chronic bilateral DeQuervain?s and associated myofascial restriction. While left-sided tissue tone responded favorably to intervention, the right forearm? particularly the superficial flexor compartment?remains more tense and resistant, likely reflecting ongoing compensatory use or delayed tissue recovery. Patient reports decreased consistency with home use of self-massage and ice, which may be contributing to persistent tone and perceived plateau. She was receptive to re-education regarding the benefits of thermal modulation and manual strategies, and committed to resuming consistent use this week. She tolerated today?s manual treatment and AROM interventions without increase in symptoms, demonstrating appropriate movement quality and improving tissue response. Continued skilled OT is recommended to address persistent soft tissue restriction, reinforce home strategies, and support tendon resilience and neuromuscular control in the context of her chronic presentation. Home Exercise radial nerve glides Program Reviewed with Goals,Progress Being Made,Home Exercise Program Patient/Caregiver Patient/Caregiver Good Understanding - Plan Therapy Continue with Current Program Recommendations Amount of Therapy 3-4 Months Recommended Frequency of Once a Week Treatment Length of Session 45 Minutes Treatment Emphasis scapular mobs, upper trap/levator scapulae release Next Session Therapeutic Contents Active Range of Motion,Adaptive Equipment Education, Client Education,Functional Activities,Home Exercise Program,Joint Protection,Manual Therapy,Education,Self- Care,Stretching/Flexibility Activities,Therapeutic Activities,Therapeutic Exercises,Modalities Modalities As Needed Types of Modalities Contrast Bath,Ice Massage,Other Additional Types of MHP, paraffin Modalities
--- NOTE | 2025-01-08 17:25 | OT.OP.DC ---
Visit Care Team Role Provider Type TREY Rodrigez Attending Provider Non-Staff Primary Care Provider Referring Provider Address: [facility], [place], [address] Email: OT Outpatient OT Outpatient Adult Evaluation Start: 09/20/24 12:34 Freq: Status: Active Protocol: Document 09/20/24 14:30 (Rec: 09/20/24 12:53 [id number]) General Information - Adult Visit Information Visit Number 1 of 10 Plan of Care Dates 09/20/24-11/29/24 Insurance no pre-auth;no copay/deductible;max 12 OT visits, Information including 1 OT eval pcy Session Time Visit Start Date 09/20/24 Visit Start Time 14:30 Visit Stop Time 15:15 Setting Treatment Setting Outpatient Care Visit Type Note Type Initial Evaluation Referral Referring Physician TREY Rodrigez, MSN, MATERIALS SCIENTIST-BC Reason for Referral DeQuervain's tenosynovitis of wrist Identification Identification Yes Confirmed Identification EMR Confirmed By Medical Information Medical History History of bilateral trigger of thumbs, vestibular migraines, vertigo Social Information Social History I can't do anything with a banana handler at this point, 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, Patient Questionnaires Quick Dash- Upper Extremity Quick Dash UE Score 52.3 Quick Dash UE 40 to 59% Impaired (Score 40-59) Impairment Quick Dash- Work and Sports Modules Quick Dash W&S Score W: 75, S: 100 Quick Dash Work and 100% Impaired (Score 100) Sport Impairment Goals Objective Measurements Objective Juan test: (+) bilaterally Measurements Sterilizer Operator: R - 10, 10, 10 - Average: 10lb L - 5, 8, 10 - Average: 7.7lb 3 Jaw Juan Pinch: R - 7, 9, 6 - Average: 7.3lb L - 5, 5, 7 - Average: 5.7lb Lateral Pinch: R - 7, 10, 10 - Average: 9lb L - 9, 10, 9 - Average: 9.3 Treatment Treatment Patient educated on conservative management strategies for suspected bilateral DeQuervain?s tenosynovitis. Home exercise program initiated, including gentle AROM for ulnar deviation, thumb opposition, and Juan stretch. Patient instructed on appropriate use of ice and heat modalities for pain modulation. Advised to continue use of bilateral thumb spica splints with emphasis on compliance during aggravating activities. Discussed benefits and rationale for compression wrapping, as patient reported previous benefit. Short Term Goals Short Term Goals Within 5 weeks: 1. Patient will demonstrate independence with ergonomic strategies and self-management tools including appropriate splint use, modalities, and task pacing/ modification to prevent flare-up. 2. Patient will report a reduction in pain during light grasp and pinch activities from 9/10 to =5/10 per self -report. 3. Patient will demonstrate independent performance of HEP with correct technique and tolerance within pain free range. 4. Patient will identify 3 aggravating tasks and demonstrate safe modification or tool adaptation strategies to reduce flare-ups. 5. Patient will tolerate 15?20 minutes of light leisure or work-related hand activity without sharp pain (VAS =/<6/10). Mcc Goals [place] [facility] Goals Within 10 weeks: 1. Patient will report reduction of average pain to =3/ 10 with daily ADL and light IADL including carrying lightweight objects (e.g. plate, laptop). 2. Patient will demonstrate improved banana handler strength of = 18 lb (R) and =15 lb (L) without symptom flare-up. 3. Patient will participate in light occupational/ leisure tasks (typing, embroidery) for =30 minutes with minimal discomfort per patient report. 4. Patient will tolerate modified weight-bearing through wrists (e.g. light pressure with palms flat) with <3/10 pain. 5. Patient will demonstrate improved perceived independence with functional performance as demonstrated by a quickDASH score of =/< 25 in all modules. Assessment/Plan Assessment Patient Response Good Rehabilitation Excellent Potential Impairments ADLs,Body Mechanics,Functional Activities,Motor Identified Function,Pain,Weakness,Recreational Activities, Meaningful Activities,Work Capacity Treatment Assessment 54 year old [id number] female referred to occupational therapy by TREY Rodrigez, MSN, MATERIALS SCIENTIST -BC for bilateral DeQuervain's tenosynovitis. Patient presents with clinical signs consistent with bilateral DeQuervain?s tenosynovitis, including positive Juan?s test, impaired banana handler strength, activity- provoked pain at the radial wrist near the first dorsal compartment, and reported aggravation during functional and occupational tasks such as embroidery, typing, and lifting. While symptom provocation is inconsistent with repeated movements, she reports sharp , severe pain at times (9/10) with clear correlation to load through the thumb and radial wrist. She demonstrates marked activity limitations in ADL, IADL, and work tasks with QuickDASH scores and non-functional banana handler and pinch strength bilaterally reflecting substantial disability. 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 Despite some modest improvement in function since symptom onset in December 2023, pain remains significant and limiting. Splint compliance and prior response to compression suggest that neuromuscular and mechanical support are essential components of her symptom management. Further evaluation is warranted for differential diagnosis including possible intersection syndrome or early CMC joint instability. Patient will benefit from skilled OT services to address pain modulation, activity modification, ergonomic retraining, progressive HEP instruction, splinting guidance, and gradual reconditioning of banana handler and pinch mechanics to restore functional participation . Home Exercise AROM for ulnar deviation, thumb opposition, and Program Juan stretch Reviewed with Goals,Progress Being Made,Home Exercise Program Patient Patient Good Understanding Plan Length of treatment 10 (weeks) Plan of Care Start 09/20/24 Date Plan of Care End 11/29/24 Date Treatment Frequency Once a Week Treatment Duration 45 Minutes Therapeutic Contents Active Range of Motion,Adaptive Equipment Education, Client Education,Functional Activities,Home Exercise Program,Joint Protection,Manual Therapy,Education,Self- Care,Stretching/Flexibility Activities,Therapeutic Activities,Therapeutic Exercises,Modalities Modalities As Needed Types of Modalities Contrast Bath,Ice Massage,Other Additional Types of MHP, paraffin Modalities Patient Instruction Home Exercise Program,Plan of Care,Questions/Concerns Patient Continue with Current Program Recommendations Functional Wrist/Hand Scan Hand Side Sensory Assessment Sensory Profile2 OT Outpatient Treatment Note - Adult Start: 09/20/24 12:34 Freq: Status: Active Protocol: Document 01/08/25 13:45 (Rec: 01/04/25 12:57 [id number]) OT Outpatient Adult Treatment Note Session Time Visit Start Date 01/08/25 Visit Start Time 13:45 Visit Stop Time 14:30 Visit Information Visit Number 12 of 12 Plan of Care Dates 09/20/24-01/17/25 Insurance no pre-auth;no copay/deductible;max 12 OT visits, Information including 1 OT eval pcy Setting Treatment Setting Outpatient Care Visit Type Note Type Discharge Summary - Subjective Identification Type Name Identification Medical Record Reconciled With Observations I know I have made progress but, pain is still limiting Patient/Caregiver Good Compliance with Home Exercise Program - Objective Objective QuickDASH: 54.5 (52.3 on eval 09/20), W: 50 (75 on eval) Measurements , S: 100 (100 on eval) Sterilizer Operator: (R: 50/55/50 Av.7); (L: 50/50/45 Av.3) [ON EVAL 09/20: R: Avg 10#; L: Avg 7.7#] Tripod Pinch: (R: 02/17/lb Average: 13lb); (L: Average 13.7) [ON EVAL 09/20 Averages: R 7.3#; L: 5.7 #] Lateral Pinch: (R: / Average: 14.7 ); (L: 13/. /13 Average: 13.2) [ON EVAL 09/20: R:9#; L: 9.3#] Short Term Goals Within 5 weeks: 1. Patient will demonstrate independence with ergonomic strategies and self-management tools including appropriate splint use, modalities, and task pacing/ modification to prevent flare-up. [MET 01/08/25] 2. Patient will report a reduction in pain during light grasp and pinch activities from 9/10 to =5/10 per self -report. [MET 01/08/25] 3. Patient will demonstrate independent performance of HEP with correct technique and tolerance within pain free range.[MET 12/07/24] 4. Patient will identify 3 aggravating tasks and demonstrate safe modification or tool adaptation strategies to reduce flare-ups. [MET 12/07/24] 5. Patient will tolerate 15?20 minutes of light leisure or work-related hand activity without sharp pain (VAS =/<6/10). [PARTIALLY MET 01/08/25] Mcc Goals Within 10 weeks: 1. Patient will report reduction of average pain to =3/ 10 with daily ADL and light IADL including carrying lightweight objects (e.g. plate, laptop). [PARTIALLY MET 01/08/25] 2. Patient will demonstrate improved banana handler strength of = 18 lb (R) and =15 lb (L) without symptom flare-up. [MET 01/08/25] 3. Patient will participate in light occupational/ leisure tasks (typing, embroidery) for =30 minutes with minimal discomfort per patient report. [PARTIALLY MET 01/08/25] 4. Patient will tolerate modified weight-bearing through wrists (e.g. light pressure with palms flat) with <3/10 pain. [NOT MET 01/08/25] 5. Patient will demonstrate improved perceived independence with functional performance as demonstrated by a quickDASH score of =/< 25 in all modules. [NOT MET 01/08/25] - Treatment 1 Descriptor During today?s session, patient participated in standardized banana handler and pinch strength testing, which demonstrated significant gains since initial evaluation . Pt also reviewed her home exercise program (HEP), bracing strategies, and pain management techniques, including the importance of consistent brace use, pacing of activity demands, and use of cryotherapy and soft tissue work during flare-ups. Patient verbalized good understanding of all education and demonstrated motivation to resume more consistent participation. She reported that recent symptom aggravation may be related to decreased adherence following the start of a new job and acknowledged she had made better progress prior to that time. Pt re-educated on anatomy and physiological benefits of bracing before progressing activity/resistive exercises - Assessment Patient Response to Good Treatment Rehabilitation Excellent Potential Impairments ADLs,Body Mechanics,Functional Activities,Motor Identified Function,Pain,Weakness,Recreational Activities, Meaningful Activities,Work Capacity Progress Towards Slow Progress Goals Assessment of Plateaued Overall Progress Assessment of Patient was referred to occupational therapy for Improvement skilled intervention to address bilateral DeQuervain?s tenosynovitis with associated pain, decreased banana handler/ pinch strength, and activity limitations affecting ADL, IADL, and occupational performance. At initial evaluation, patient presented with high pain levels ( VAS 9/10 during pinch/grasp tasks), significant soft tissue tension throughout the forearms and thenar regions, and reduced banana handler strength (R: 10 lb / L: 7.7 lb). She also demonstrated difficulty with functional use of both hands during tasks such as typing, embroidery, carrying, and caring for her horse. Throughout the course of therapy, the patient engaged in a comprehensive plan of care including: soft tissue mobilization, contract-relax techniques, vibratory neuromuscular re-education using tuning forks, ergonomic education, joint protection strategies, bracing support, and progressive tendon-friendly home exercises. She demonstrated marked improvement in objective strength, with more than a fourfold increase in banana handler and pinch strength bilaterally. She met several short- and long-term goals, including reduction in average pain with pinch tasks, improved tolerance for daily activities such as carrying plates, and demonstration of independence with activity modification and joint protection techniques. Despite this progress, the patient did not fully meet all long-term functional goals, including ability to tolerate modified weight-bearing through the wrists or sustain occupational tasks such as laptop carrying or horse care without pain. She continues to report variable symptom provocation that is not always clearly linked to activity, with occasional pain still reaching 7?8/10 during flare-ups. However, she acknowledges an overall reduction in symptom frequency, increased strength and capacity, and greater insight into her condition. Due to provider unavailability at this location, the patient has elected to discharge at this time and pursue care with an outside provider when ready to resume skilled OT. She was educated on continuing her home program, the importance of bracing and symptom pacing, and strategies to reduce inflammation prior to resuming resistive tasks. She verbalized full understanding of all recommendations and expressed motivation to return to consistent participation. Patient continues to demonstrate clinical need for skilled therapy and may benefit from re-referral when she is ready to resume treatment. Reviewed with Goals,Progress Being Made,Home Exercise Program Patient/Caregiver Patient/Caregiver Good Understanding - Plan Therapy Discharge to Home Exercise Program Recommendations Amount of Therapy No Further Therapy Recommended Frequency of No Further Therapy Treatment
== END 2025-01-11 11:10 | disposition home or self-care (01) ==
LOC: OT 13:45
PROVIDERS: PCP Nurse Practitioner Family; Referring Provider Nurse Practitioner Family; Visit Provider Nurse Practitioner Family
DX: M65.4 Radial styloid tenosynovitis [de Quervain] (principal)
CPT/HCPCS: 97110; 97140; 97165; 97530